=== PATIENT | female | born 1990 | race Caucasian/White ===

== ENCOUNTER 2023-08-02 13:12 | Emergency (ER) | payer OTHER, SELFPAY ==
[2023-08-02 13:12] VITALS: BP 143/86; PULSE 85; RESP 22; TEMP 36.6; O2SAT 100
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
[2023-08-02 13:26] VITALS: BP 143/86; PULSE 85; RESP 22; TEMP 36.6; O2SAT 100
== END 2023-08-02 14:06 | disposition home or self-care (01) ==
PROVIDERS: Emergency Provider Internal Medicine Critical Care Medicine; PCP Internal Medicine
DX: F41.0 Panic disorder [episodic paroxysmal anxiety] (principal); F31.9 Bipolar disorder, unspecified
CPT/HCPCS: 99284